=== PATIENT | female | born 1995 | race Caucasian/White ===

== ENCOUNTER 2023-01-11 20:18 | Emergency (ER) | payer OTHER, SELFPAY ==
[2023-01-11] VITALS (20 sets, daily range): BP systolic 101–132; BP diastolic 61–97; PULSE 81–105; RESP 16; TEMP 36.7; O2SAT 96–99; BMI 24.5
--- NOTE | 2023-01-11 20:30 | ED_ITS ---
HPI - General Adult General Chief complaint: Vaginal Bleeding Stated complaint: Heavy bleeding, possible miscarriage Time Seen by Provider: 01/11/23 20:30 History of Present Illness HPI narrative: bleeding yesterday, seen PCP at [facility] that stated baby was high and good HR. states 6w 7d today. 2nd preg. bleeding worsened today. states clots and now soaking pads [id number]. through pants. states lightheaded, cold and cramping. denies any meds besides . Accompanied by significant other/ 27-year-old woman presenting to the emergency department with concern of vaginal bleeding that has increased. . Prior was uncomplicated. Was actually seen by primary OB provider and had an ultrasound yesterday showing apparently normal . I am able to review this ultrasound report. Looks to be an active and viable mid 6 week . Not able to determine location of placenta per report. Apparently no conclusion as to source of bleeding. Has not been struggling with nausea particularly and no change in how she feels otherwise. No fevers. No dysuria. She is now soaking through standard menstrual pads as often as every 35-45 minutes. Demonstrates fist-sized clots. Has soak through some pants. She is feeling a little lightheaded and tingly but admits that that might be related to some stress. Is not really having significant abdominal pain. Some cramping though. Related Data Allergies Allergy/AdvReac Type Severity Reaction Status Date / Time Sulfa (Sulfonamide AdvReac Verified 01/11/23 20:28 Antibiotics) Review of Systems Status of ROS: Reports: 6 or more systems reviewed and unremarkable except as noted in History and below PFSH [facility] Social History Smoking Status: Never smoker Do you use any of these nicotine containing products: None Second hand tobacco smoke exposure: No How often do you have a drink containing alcohol: never AUDIT-C Alcohol total score: 0 Non-prescribed substance use: denies use Exam Narrative: Exam Narrative: Very pleasant. Mildly anxious. Breathing easily. Skin is warm and dry. Lungs are clear heart with regular rate and rhythm; maybe a little elevated. Abdomen is soft little uncomfortable to palpation in the suprapubic area. No masses are appreciated. Extremities are well perfused and without edema. Was noted to be soaking through clothing on her way to the bathroom. was not examined anticipating ultrasound Const: Vital Signs, click to edit/add: Vital Signs - 24 hr 01/11/23 20:25 01/11/23 20:44 01/11/23 20:45 Temperature 98.1 F Pulse Rate 105 H 94 Pulse Rate [Left P ulse Oximeter] 87 Respiratory Rate 16 Blood Pressure Blood Pressure [Ri ght Upper Arm] 120/73 Pulse Oximetry 99 97 98 Oxygen Delivery Me thod Room Air 01/11/23 20:46 01/11/23 20:47 01/11/23 21:19 Temperature Pulse Rate 98 101 H 94 Pulse Rate [Left P ulse Oximeter] Respiratory Rate Blood Pressure 132/80 Blood Pressure [Ri ght Upper Arm] Pulse Oximetry 97 97 97 Oxygen Delivery Me thod 01/11/23 21:20 01/11/23 21:21 01/11/23 21:30 Temperature Pulse Rate 94 89 99 Pulse Rate [Left P ulse Oximeter] Respiratory Rate Blood Pressure 119/67 Blood Pressure [Ri ght Upper Arm] Pulse Oximetry 96 97 98 Oxygen Delivery Me thod 01/11/23 21:31 01/11/23 21:45 01/11/23 21:46 Temperature Pulse Rate 87 93 93 Pulse Rate [Left P ulse Oximeter] Respiratory Rate Blood Pressure 117/77 116/61 Blood Pressure [Ri ght Upper Arm] Pulse Oximetry 98 98 99 Oxygen Delivery Me thod 01/11/23 22:02 01/11/23 22:17 01/11/23 22:31 Temperature Pulse Rate 85 88 84 Pulse Rate [Left P ulse Oximeter] Respiratory Rate Blood Pressure 116/74 111/97 H 108/68 Blood Pressure [Ri ght Upper Arm] Pulse Oximetry 97 97 97 Oxygen Delivery Me thod 01/11/23 22:46 01/11/23 23:03 01/11/23 23:16 Temperature Pulse Rate 84 81 84 Pulse Rate [Left P ulse Oximeter] Respiratory Rate 16 Blood Pressure 101/62 113/64 105/64 Blood Pressure [Ri ght Upper Arm] Pulse Oximetry 97 98 98 Oxygen Delivery Me thod 01/11/23 23:31 01/11/23 23:46 Temperature Pulse Rate 82 83 Pulse Rate [Left P ulse Oximeter] Respiratory Rate Blood Pressure 111/66 108/69 Blood Pressure [Ri ght Upper Arm] Pulse Oximetry 98 98 Oxygen Delivery Me thod Room Air Documenting provider has reviewed patient's vital signs: yes Course Vital Signs Vital signs: Initial Vital Signs Temperature 98.1 F 01/11/23 20:25 Temperature Source Temporal Artery Scan 01/11/23 20:25 Pulse Rate 87 01/11/23 20:25 Respiratory Rate 16 01/11/23 20:25 Blood Pressure 120/73 01/11/23 20:25 Blood Pressure Mean 88 01/11/23 20:25 Blood Pressure Position Sitting 01/11/23 20:25 Pulse Oximetry 99 01/11/23 20:25 Oxygen Delivery Method Room Air 01/11/23 20:25 Vital Signs Temperature 98.1 F 01/11/23 20:25 Pulse Rate 87 01/11/23 20:25 Respiratory Rate 16 01/11/23 20:25 Blood Pressure 120/73 01/11/23 20:25 Pulse Oximetry 99 01/11/23 20:25 Oxygen Delivery Method Room Air 01/11/23 20:25 Temperature 98.1 F 01/11/23 20:25 Pulse Rate 83 01/11/23 23:46 Respiratory Rate 16 01/11/23 23:03 Blood Pressure 108/69 01/11/23 23:46 Pulse Oximetry 98 01/11/23 23:46 Oxygen Delivery Method Room Air 01/11/23 23:46 Medical Decision Making MDM Narrative Medical decision making narrative: Certainly concerns of miscarriage here; complete vs incomplete. Given degree of bleeding will need to type and screen and assess for potential RhoGAM need. Tr end hemoglobin/hematocrit for potential transfusion. Ultrasound looking for viability of and/or retained products. Looks to be experiencing a spontaneous miscarriage. IV was established. I discussed ultrasound results with technologist infectious disease. Radiology over-read as below IMPRESSION: Thickened endometrial lining with probable blood products in the endometrial canal and cervix. No intrauterine gestational sac identified. Correlate with serial beta HCG levels. ?no definite evidence of retained products of conception? HCG quantitative of 6764.40 Hgb 12.9 11.9 L (12.0-16.0) gm/dL Hct 38.7 36.2 (33.0-51.0) % during approximately 3 hours in the emergency department hemoglobin has dropped by 1 gram. Surely it is a little lower than this yet but Ms. Dolan is vitally generally well. Bleeding she acknowledges has lessened significantly. Blood type A positive. No need for RhoGAM Given known location of probably does not need to follow this quant to 0. Follow-up pending further bleeding. Also without prior known loss, no indication for genetic testing at this time. Offered condolences. I think they were handling this news quite well together. See patient discharge plan Lab Data Lab results reviewed: Yes I reviewed the patient's lab results Labs: Lab Results 01/11/23 01/11/23 01/11/23 Range/Units 20:36 20:38 23:00 WBC 6.17 6.09 (4.50-11.00) K/uL RBC 4.43 4.11 (4.00-5.20) m/uL Hgb 12.9 11.9 L (12.0-16.0) gm/dL Hct 38.7 36.2 (33.0-51.0) % MCV 87 88 (80-100) fL MCH 29 29 (26-34) pg MCHC 33 33 (32-36) gm/dL RDW Coeff of Jeff 12.1 12.3 (11.5-15.5) % Plt Count 220 211 (140-440) K/uL Neut % (Auto) 35.3 L 32.8 L (42.0-72.0) % Lymph % (Auto) 57.4 H 55.3 H (20-44) % Oliver % (Auto) 6.5 10.7 (0.0-11.0) % Eos % (Auto) 0.5 0.7 (0.0-7.0) % Baso % (Auto) 0.3 0.2 (0.0-3.0) % Neut # (Auto) 2.20 2.00 (1.7-7.0) K/uL Lymph # (Auto) 3.50 H 3.40 H (0.90-2.90) K/uL Oliver # (Auto) 0.40 0.70 (0.00-0.90) K/UL Eos # (Auto) 0.03 0.04 (0.00-0.50) K/uL Baso # (Auto) 0.02 0.01 (0.00-0.30) K/uL Abs Immat Gran (auto) 0.00 0.02 (0.00-0.30) K/uL Imm/Tot Granulo (auto) 0.0 0.3 % Sodium 138 (135-149) mmol/L Potassium 3.8 (3.6-5.1) mmol/L Chloride 104 (96-114) mmol/L Carbon Dioxide 23 (20-32) mmol/L Anion Gap 11 (7-15) mEq/L BUN 8 (5-24) mg/dL Creatinine 0.5 (0.5-1.5) mg/dL Estimated Creat Clear 158.22 Estimated GFR 132 ml/min Glucose 154 H (60-115) mg/dL Calcium 9.1 (8.4-10.6) mg/dL Total Bilirubin 0.4 (0.1-1.5) mg/dL Direct Bilirubin 0.0 (0.0-0.5) mg/dL AST 30 (12-35) U/L ALT 30 (4-35) U/L Alkaline Phosphatase 63 (40-150) U/L Total Protein 7.2 (6.0-8.3) g/dL Albumin 4.3 (3.3-5.0) g/dL HCG, Quant 6764.40 mIU/mL Blood Type A Positive Antibody Screen NEGATIVE Discharge Plan Discharge Clinical Impression: Complete miscarriage, Episode of heavy vaginal bleeding Patient Disposition: Home w/ Parent or Adult Condition: Improved Additional Instructions: Stay well-hydrated. Return for bleeding through 1 heavy pad an hour for 2 consecutive hours, worsening lightheadedness, increasing shortness of breath, increasing uncontrolled abdominal pain, associated fever. Sorry this happened to you. Follow Up/Referrals: Provider,Not a Local [Primary Care Provider] - Stand Alone Forms: MyHealth Info Instructions
[2023-01-11 20:44] LABS: Basophils Absolute Auto 0.02 K/uL (0.00-0.30); Basophils Percent Auto 0.3 % (0.0-3.0); Eosinophils Absolute Auto 0.03 K/uL (0.00-0.50); Eosinophils Percent Auto 0.5 % (0.0-7.0); Hematocrit 38.7 % (33.0-51.0); Hemoglobin* 12.9 gm/dL (12.0-16.0); Lymphocytes Percent Auto 57.4 % (20-44); Mean Corpuscular HGB Conc 33 gm/dL (32-36); Mean Corpuscular Hemoglobin 29 pg (26-34); Mean Corpuscular Volume 87 fL (80-100); Monocytes Percent Auto 6.5 % (0.0-11.0); Neutrophils Percent Auto 35.3 % (42.0-72.0); Platelet Count* 220 K/uL (140-440); RDW Coefficient of Variation % 12.1 % (11.5-15.5); Red Blood Count 4.43 m/uL (4.00-5.20); White Blood Count* 6.17 K/uL (4.50-11.00)
[2023-01-11 20:45] LABS: Slide Review Reflex No
--- NOTE | 2023-01-11 20:51 | CRLHL7_ITS ---
For Patients: As a result of the Century Cures Act, medical imaging exams and procedure reports are released immediately into your electronic medical record. You may view this report before your referring provider. If you have questions, please contact your health care provider. INDICATION: Bleeding in early . Patient had ultrasound at [facility] [place], [place] yesterday and confirmed viable IUP. Heavy bleeding and clots increased since yesterday. COMPARISON: None available. TECHNIQUE: 2D mccartney scale and color Doppler images were acquired of the pelvis using a transvaginal approach. FINDINGS: Sonographic images demonstrate a normal size and smooth outer contour of the uterus. The uterus is anteverted in position. The uterus measures 9.5 cm in length by 4.5 cm in AP diameter by 5.5 cm in transverse dimension. The myometrium has uniform echotexture. The endometrial lining measures 19 mm in composite thickness. No intrauterine gestational sac identified. Heterogeneous material within the endometrial canal and cervix likely represents blood products. No definite evidence of retained products of conception. The right ovary measures 4.0 x 2.0 x 2.2 cm and the left ovary measures 3.8 x 2.0 x 2.8 cm. Blood flow is seen within both ovaries. No free fluid in the cul-de-sac. IMPRESSION: Thickened endometrial lining with probable blood products in the endometrial canal and cervix. No intrauterine gestational sac identified. Correlate with serial beta HCG levels. Dictated by More Booth MD @ 01/11/2023 9:50:06 PM (Electronically Signed)
[2023-01-11 20:57] LABS: Albumin* 4.3 g/dL (3.3-5.0); Chloride* 104 mmol/L (96-114)
[2023-01-11 20:58] LABS: Potassium* 3.8 mmol/L (3.6-5.1); Sodium* 138 mmol/L (135-149)
[2023-01-11 21:00] LABS: Anion Gap 11 mEq/L (7-15); Carbon Dioxide* 23 mmol/L (20-32); Creatinine* 0.5 mg/dL (0.5-1.5); Est. Creatinine Clearance* 158.22; Estimated Glomerular Filt Rate 132 ml/min
[2023-01-11 21:01] LABS: Alanine Aminotransferase* 30 U/L (4-35); Alkaline Phosphatase* 63 U/L (40-150); Aspartate Amino Transferase* 30 U/L (12-35); Bilirubin Total* 0.4 mg/dL (0.1-1.5); Blood Urea Nitrogen* 8 mg/dL (5-24); Calcium* 9.1 mg/dL (8.4-10.6); Glucose* 154 mg/dL (60-115); Total Protein* 7.2 g/dL (6.0-8.3)
[2023-01-11 23:07] LABS: Basophils Absolute Auto 0.01 K/uL (0.00-0.30); Basophils Percent Auto 0.2 % (0.0-3.0); Eosinophils Absolute Auto 0.04 K/uL (0.00-0.50); Eosinophils Percent Auto 0.7 % (0.0-7.0); Hematocrit 36.2 % (33.0-51.0); Hemoglobin* 11.9 gm/dL (12.0-16.0); Immature Granulocytes Abs Auto 0.02 K/uL (0.00-0.30); Immature Granulocytes Pct Auto 0.3 %; Lymphocytes Percent Auto 55.3 % (20-44); Mean Corpuscular HGB Conc 33 gm/dL (32-36); Mean Corpuscular Hemoglobin 29 pg (26-34); Mean Corpuscular Volume 88 fL (80-100); Monocytes Percent Auto 10.7 % (0.0-11.0); Neutrophils Percent Auto 32.8 % (42.0-72.0); Platelet Count* 211 K/uL (140-440); RDW Coefficient of Variation % 12.3 % (11.5-15.5); Red Blood Count 4.11 m/uL (4.00-5.20); White Blood Count* 6.09 K/uL (4.50-11.00)
[2023-01-11 23:08] LABS: Slide Review Reflex No
== END 2023-01-11 23:59 | disposition home or self-care (01) ==
PROVIDERS: Emergency Provider Family Medicine
DX: O03.9 Complete or unspecified spontaneous abortion without complication (principal)
CPT/HCPCS: 36415; 76817; 80048; 80076; 81001; 84702; 85025; 86850; 86900; 86901; 99283; 99284